=== PATIENT | male | born 2000 | race Caucasian/White ===

== ENCOUNTER 2020-04-08 08:35 | Outpatient (CLI) | payer OTHER ==
[~2020-04-08] VITALS: Ht 188 cm; Wt 80.6 kg
[2020-04-08 08:57] VITALS: BP 131/85; PULSE 80; TEMP 98.2
[2020-04-08 11:00] VITALS: BP 114/77; BP 131/53; PULSE 91; PULSE 97; TEMP 98.3
[2020-04-08] MEDS ORDERED: CEPHALEXIN500 M1 PO (11:06)
[2020-04-08 11:28] VITALS: BP 133/75; PULSE 82
== END 2020-04-08 11:34 | disposition home or self-care (01) ==
LOC: COL.CAR 08:35
DX: I47.1 Supraventricular tachycardia (principal); I10 Essential (primary) hypertension; Z87.891 Personal history of nicotine dependence